=== PATIENT | male | born 1985 | race Caucasian/White ===

== ENCOUNTER 2016-04-01 11:13 | Emergency (ER) | payer OTHER ==
[~2016-04-01] VITALS: Ht 182.9 cm; Wt 95.6 kg
[2016-04-01 11:18] VITALS: TEMP 37; Ht 182.9 cm; Wt 95.6 kg
[2016-04-01] MEDS ORDERED: BUPIVACAINE 0.25% 30 ML VIAL INFIL ONE (11:30)
[2016-04-01] MEDS ORDERED: XYLOCAINE 1%/SOD BICARB 20 ML VIAL INFIL ONE (11:30)
--- NOTE | 2016-04-01 12:04 | DIAGNOSTIC IMAGING REPORT ---
LEFT HAND 3 VIEWS HISTORY: Left hand and finger tip laceration. Saw injury. COMPARISON: None. FINDINGS: There is no fracture or dislocation. Soft tissue lacerations at the distal tips of the third and fourth fingers. No radiopaque foreign bodies. IMPRESSION: No fractures. Soft tissue lacerations at the distal tips of the third and fourth fingers. Electronically signed by: Epi Hope M.D. 04/01/2016 12:02 PM Dictated Date/Time: 04/01/2016 12:00 PM
[2016-04-01] MEDS ORDERED: CLOM50TA6 PO (12:11)
[2016-04-01] MEDS ORDERED: TAMO20TA47 PO (12:11)
[2016-04-01] MEDS ORDERED: OXYC1TAB3 PO ×2 (12:13→12:40)
[2016-04-01] MEDS ORDERED: GELATIN SPONGE 12-7MM ONE (12:28)
[2016-04-01 12:50] VITALS: BP 154/93; PULSE 67; O2SAT 100
--- NOTE | 2016-04-01 15:56 | EMERGENCY ROOM VISIT NOTE ---
History First contact with patient: 11:22 Chief Complaint: HAND PAIN/INJURY Stated Complaint: RIGHT HAND CAUGHT IN SAW - WC History of Present Illness The patient is a 30 year old male who presents to the Emergency Room with complaints of lacerations to his left third and fourth fingers. The patient reports accidentally cutting his fingers on a small at work this morning at approximately 10:30 AM. The patient rates his discomfort a 9 out of 10. He does report moderate bleeding from the fingertips. Tetanus immunization is up- to-date. The patient is [id number]. Review of Systems 10 system review was performed and was negative except for pertinent positives and negatives as indicated in history of present illness Past Medical/Surgical History Medical Problems: (1) Anxiety State Nos (2) Hepatitis C (3) Tobacco Use Disorder Surgical Problems: (1) No history of previous surgery Family History Unremarkable Social History Smoking Status: Never Smoker Alcohol Use: occasionally Marital Status: single Occupation Status: employed Current/Historical Medications Scheduled Clomiphene Citrate (Clomiphene Citrate), 50 TAB PO DIRECTED Tamoxifen (Nolvadex), 20 MG PO DIRECTED Scheduled PRN Oxycodone Ir (Roxicodone Ir), 1-2 TAB PO Q4H PRN for Pain Allergies Coded Allergies: Acetaminophen (Unverified Allergy, Unknown, ., 07/05/15) Penicillins (Verified Allergy, Unknown, 04/01/16) Physical Exam Vital Signs Date Time Temp Pulse Resp B/P Pulse Ox O2 Delivery O2 Flow Rate FiO2 04/01/16 12:50 67 16 154/93 100 04/01/16 11:18 37.0 80 18 160/97 95 Pain Rating (0-10): 5.0 Physical Exam CONSTITUTIONAL: Healthy and well nourished. Alert and oriented X 3 with positive affect. Patient appears in severe discomfort on initial exam. HEENT: Normocephalic, atraumatic. Pupils equal, round and reactive. NECK: Full active range of motion without discomfort. MUSCULOSKELETAL: Examination of the left hand shows lacerations to the fingertips of the third and fourth fingers. Mild bleeding is noted. Capillary refill is brisk. Further details of the laceration is discussed in the following Procedure section. INTEGUMENTARY: No rash or other significant dermatologic conditions noted. NEUROLOGIC: No focal neurologic deficits noted. Left third and fourth fingertips are hyperesthetic. Medical Decision & Procedures ER Provider Diagnostic Interpretation: My interpretation of left hand x-rays does not show any involvement of the left third or fourth finger jd. Radiologist report is as follows: LEFT HAND 3 VIEWS HISTORY: Left hand and finger tip laceration. Saw injury. COMPARISON: None. FINDINGS: There is no fracture or dislocation. Soft tissue lacerations at the distal tips of the third and fourth fingers. No radiopaque foreign bodies. IMPRESSION: No fractures. Soft tissue lacerations at the distal tips of the third and fourth fingers. Procedure Wound evaluation was performed under digital block anesthesia after receiving verbal consent from the patient. Using a 1-1 mixture of Sensorcaine 0.25% and buffered lidocaine 1%, good digital block anesthesia was administered to the third and fourth fingers. The fingertips were then lightly cleansed with iodine , then the wounds were copiously pressure irrigated with normal saline. Evaluation of both wounds shows multiple devitalized fragments on both fingertips. There was no deeper subcutaneous lacerations. An approximated 0.5 cm of sharp debridement was performed. Gelfoam pressure dressings were then applied. ED Course Patient history and physical exam were performed. Nurse's notes were reviewed. X-rays of the left hand does not show any involvement of the bony jd of the third or fourth fingers. Digital block anesthesia was administered for pain control, as well as to perform further wound evaluation. The fingertips did have some devitalized tissue that were sharply debrided, otherwise Gelfoam pressure dressings were applied. The patient was provided a prescription for OxyIR 5 mg. Specific Gelfoam instructions were provided. The patient was encouraged to watch for any signs of infection, otherwise keep the wounds clean and covered with an antibiotic ointment and dressing until they heal. The patient was instructed to return to the emergency department for any further wound concerns, otherwise was instructed to follow-up with his Worker's Compensation physician as needed for further management. The patient voiced understanding of all discharge instructions, and denied any pain at the conclusion of my exam. Medical Decision Impression Primary Impression: Left 3rd fingertip laceration Additional Impressions: Work related injury Left 4th fingertip laceration Departure Information Dispostion Home / Self-Care Condition GOOD Prescriptions Oxycodone Ir (Roxicodone Ir) 5 Mg Tab 1-2 TAB PO Q4H Y for Pain, #36 TAB For Initial Treatment Prov: Abdoul Leung PA 04/01/16 Forms HOME CARE DOCUMENTATION FORM, IMPORTANT VISIT INFORMATION Patient Instructions My [facility] Additional Instructions Keep dressing in place for 48 hrs, then remove. Soak dressings and foam in water until it falls off easily, then clean wounds daily, cover with an antibiotic ointment and keep wounds covered until they heal. Return for any signs of infection (increasing redness, swelling, drainage). Ice and elevate for swelling and pain. Ibuprofen 800 mg and/or Tylenol 1000 mg every 8 hours. You may also alternate these medications for more effective pain relief: Ibuprofen --4 HRS--> Tylenol --4 HRS--> ibuprofen --4 HRS--> Tylenol .... OxyIR if needed for worse pain. Do not drink or drive while taking OxyIR. Problem Qualifiers
--- NOTE | 2016-05-04 14:18 | EDITING REQUIRED CODING QUERY ---
LENGTH OF LACERATION To promote full compliance with coding requirements relating to patient care, physician participation is requested in all cases of clinical nutritionist uncertainty. Please assist us with the question(s) below: Please document the length of the finger laceration. Please type the length in cm within the parenthesis below. finger laceration is ( 2 ) cm. Thank you Annalise Reed
== END 2016-04-01 12:55 | disposition home or self-care (01) ==
LOC: C.EDB 11:14 → C.EDD 12:55
DX: S61.213A Laceration without foreign body of left middle finger without damage to nail, initial encounter (principal); S61.218A Laceration without foreign body of other finger without damage to nail, initial encounter; W27.0XXA Contact with workbench tool, initial encounter; Y99.0 Civilian activity done for income or pay; F41.9 Anxiety disorder, unspecified

== ENCOUNTER 2016-05-13 10:27 | Emergency (ER) | payer OTHER ==
[~2016-05-13] VITALS: Ht 182.9 cm; Wt 95.1 kg
[~2016-05-13 10:27] MED LIST: CLOM50TA6 PO; OXYC1TAB3 PO; TAMO20TA47 PO
[2016-05-13 10:31] VITALS: TEMP 37; Ht 182.9 cm; Wt 95.1 kg
--- NOTE | 2016-05-13 11:21 | DIAGNOSTIC IMAGING REPORT ---
RIGHT HAND 4 VIEWS CLINICAL HISTORY: Foreign body injury. FINDINGS: 4 views of the right hand are obtained. No prior studies are available for comparison at the time of dictation. The skeletal structures are well mineralized. No fracture is seen. The joint spaces of the hand are well-maintained. There is a nail present within the palmar soft tissues at the level of the metacarpal bases. There is no evidence of bony involvement. No additional radiodense foreign body is seen. IMPRESSION: 1. No acute bony abnormality is identified. 2. A nail is present within the palmar soft tissues. Electronically signed by: Branden Martinez M.D. 05/13/2016 11:20 AM Dictated Date/Time: 05/13/2016 11:18 AM
[2016-05-13] MEDS ORDERED: ANAS1TAB19 PO (11:24)
[2016-05-13] MEDS ORDERED: OXAN10TA (11:24)
[2016-05-13] MEDS ORDERED: [UNRECOGNIZED DRUG - OTHER] (11:24)
[2016-05-13] MEDS ORDERED: ONDANSETRON INJ 2 MG/ML 2 ML VIAL IV STA (11:27)
[2016-05-13] MEDS ORDERED: MoRPHine SULFATE 4 MG/ML 1 ML CARP\\VIAL IV STA (11:27)
[2016-05-13] MEDS ORDERED: CEFTRIAXONE SOD INJ 1 GM ADDVIAL IV STA (11:27)
[2016-05-13] MEDS ORDERED: SODIUM CHLORIDE 0.9% 1000ML 1,000 ML IV ONE (11:30)
[2016-05-13] MEDS ORDERED: XYLOCAINE 1%/SOD BICARB 20 ML VIAL INFIL ONE (11:45)
[2016-05-13] MEDS ORDERED: MoRPHine SULFATE 10 MG/ML CARP/VIAL ONE (12:05)
[2016-05-13] MEDS ORDERED: OXYC1TAB3 PO (12:54)
[2016-05-13] MEDS ORDERED: CEPH500C2 PO (12:54)
[2016-05-13 12:55] VITALS: BP 156/65; PULSE 66; O2SAT 99
--- NOTE | 2016-05-13 22:01 | EMERGENCY ROOM VISIT NOTE ---
ED Visit Note First contact with patient: 11:20 Chief Complaint: I have a nail stuck in my right hand. History of Present Illness: Mr. Talbot is a 30-year-old white male who ambulates into the ED complaining of a foreign body patient reports that he was working headache instructions and today using a power. He reports the pain is gone misfire and he had a 12 nail shot into his right hand. Currently patient is complaining of a burning pain in the area of the palmar surface of the right hand. He rates his discomfort 6/10. The pain is nonradiating. Pain worsens with palpation of the hand and the nail. He has not identified any alleviating factors related to prior to arrival at the hospital. He denies any associated symptoms including hand/finger weakness/ numbness/tingling. Review of Systems: As noted above in history of present illness. Past Medical History: Status post unspecified knee and back surgery Current Medications: Nolvadex, clomiphene, arimidex, oxandrolone. Allergies to Medications: Tylenol. Social History: Patient is currently employed; he feels safe in his home environment; he admits to tobacco use and denies alcohol use. Physical Examination: Vital Signs: Date Time Temp Pulse Resp B/P Pulse Ox O2 Delivery O2 Flow Rate FiO2 05/13/16 12:55 66 14 156/65 99 05/13/16 10:31 37.0 75 18 146/90 99 Room Air GENERAL: 30-year-old male in moderate distress due to pain, nontoxic-appearing, afebrile and hemodynamically stable. NEUROLOGICAL: Awake, alert and oriented to person, place and time. Answering questions appropriately and following commands. Normal gait. Good hand eye coordination. No focal motor sensory deficits. SKIN: Warm, dry and pink. RIGHT HAND: No gross bony deformity. Starting in the area in the between the thenar and hypothenar eminence patient has the insertion of a large nail. The nail ambulates to the medial aspect of the hand but does not puncture skin over the fifth metacarpal. There is no active bleeding. Patient has full range of motion in all movements of the MCP, PIP and DIP joints. Throughout the fingers the skin is warm and pink and capillary refill is brisk. Good oppositional finger strength with thumb of all fingers. ED Course: Patient is assessed as noted above. Patient's case was reviewed with Dr. Robles; he recommended antibiotic coverage , local anesthesia and remove the nail by pulling. Right Hand X-Rays: Was read by myself and the radiologist showing a nail present in the palmar aspect of the soft tissues but no bony involvement. An IV lock was initiated and patient received 1 g of ceftriaxone IV for antibiotic coverage and a total of 10 mg of morphine IV for pain and 4 mg of Zofran IV. Wound Repair: Verbal consent was obtained after the risks and benefits were explained. The skin was prepped with betadine and a sterile field set. Wound edges of the wound was anesthetized with 3.2 ml buffered 1% lidocaine. The nail was extracted with manual pulling. The wound was explored for foreign bodies and none found. Copious irrigation was performed using sterile saline. Hemostasis and excellent approximation was achieved. Antibacterial ointment and a sterile dressing applied. Patient's hand was placed in a wrist lacer splint. No complications and the patient tolerated the procedure well. Patient was educated about tonight's findings and instructed on his treatment plan; he verbalized last and agreement with this plan Clinical Impression: Foreign body right hand. Work related injury. Disposition: Patient discharged home in stable condition; prior to departure he was reassessed and subjectively reported he was feeling better and rated his discomfort 4/10. Plan: Comfort measures including use of narcotics were discussed with the patient; he was given appropriate narcotic precautions. Wound care and signs of infection were discussed with the patient; patient was prescribed Keflex 500 mg 4 times a day for 10 days. Patient was encouraged to follow-up with orthopedics for definitive care and treatment. Patient was encouraged return the ED for uncontrolled pain, signs of infection or any new/concerning symptoms.
== END 2016-05-13 13:03 | disposition home or self-care (01) ==
LOC: C.EDB 10:28 → C.EDC 13:03
DX: S61.441A Puncture wound with foreign body of right hand, initial encounter (principal); W29.4XXA Contact with nail gun, initial encounter; Z79.899 Other long term (current) drug therapy; F17.210 Nicotine dependence, cigarettes, uncomplicated; Y93.89 Activity, other specified; Y99.0 Civilian activity done for income or pay

== ENCOUNTER 2016-06-26 16:53 | Emergency (ER) | payer OTHER ==
[~2016-06-26] VITALS: Ht 182.9 cm; Wt 97.6 kg
[~2016-06-26 16:53] MED LIST changes: +ANAS1TAB19 PO; +OXAN10TA; -TAMO20TA47 PO; +TAMO20TA9 PO
[2016-06-26 17:05] VITALS: TEMP 37.2; Ht 182.9 cm; Wt 97.6 kg
[2016-06-26] MEDS ORDERED: OXYCODONE HCL IR 5 MG TAB (IMMEDIATE RELEASE) PO STA (17:32)
--- NOTE | 2016-06-26 18:41 | DIAGNOSTIC IMAGING REPORT ---
LEFT FOOT 3 VIEWS CLINICAL HISTORY: Left foot pain. FINDINGS: 3 views of the left foot are obtained. No prior studies are available for comparison at the time of dictation. The skeletal structures are well mineralized. No fracture is seen. Minimal degenerative spurring is seen at the first metatarsophalangeal joint. The joint spaces of the foot are otherwise well-maintained. The the soft tissues of the foot are normal in appearance. Soft tissue swelling is present around the ankle. IMPRESSION: No acute bony abnormality is seen in the left foot. Electronically signed by: Branden Martinez M.D. 06/26/2016 6:39 PM Dictated Date/Time: 06/26/2016 6:37 PM
--- NOTE | 2016-06-26 18:42 | DIAGNOSTIC IMAGING REPORT ---
LEFT ANKLE 3 VIEWS CLINICAL HISTORY: Left ankle injury. FINDINGS: 3 views of left ankle are correlated with radiograph of the left tibia and fibula dated 11/21/2006. The skeletal structures are well mineralized. No fracture is seen. The ankle mortise is intact. There is a joint effusion and significant soft tissue edema is present around the ankle. IMPRESSION: Soft tissue edema and joint effusion. No left ankle fracture is seen. Electronically signed by: Branden Martinez M.D. 06/26/2016 6:40 PM Dictated Date/Time: 06/26/2016 6:39 PM
--- NOTE | 2016-06-26 18:44 | EMERGENCY ROOM VISIT NOTE ---
ED Visit Note First contact with patient: 17:09 CHIEF COMPLAINT: Left ankle injury last evening HISTORY OF PRESENT ILLNESS: Patient is a 31-year-old white male who sustained an injury to the left ankle and foot with a twisting, inversion motion last day. He was chasing his dog in the yard, admits to having consumed alcohol. Initially after he injured the ankle he applied ice and was able to bear weight , but when he woke up this morning the pain and swelling were worse and he had to use crutches. He did not take any medication for his pain which he rates a 7 /10. He denies a prior history of injuries to this ankle. He states the pain radiates into his foot. Denies knee pain. REVIEW OF SYSTEMS: Review of systems as per HPI. All other systems reviewed were negative. At least 6 systems reviewed. PMH: Electronic medical records are reviewed and summarized as above/below. See Problem List. SOCIAL HISTORY: Patient lives at home. Smoker. PHYSICAL EXAM: Vital Signs: Reviewed Nurse's notes. MENTAL STATUS: Alert, oriented, and cooperative. The left ankle is swollen and tender over the lateral aspect but the skin is intact and there is no ligamentous instability. Moderate joint effusion is palpable. There is pain over the proximal fifth metatarsal, no pain over the proximal fibular head. Lisfranc joint is negative. There is no deformity. The foot and toes are warm and well- perfused. Sensation to pain and light touch is intact. EMERGENCY DEPARTMENT COURSE: Patient was medicated with oxycodone 10 mg orally. X-rays of the right ankle and foot were obtained. X-ray reveals no fracture, only the soft tissue swelling. A compression sleeve and gel splint were applied to the ankle under my direction and the position was satisfactory. Patient has crutches. Differential diagnosis include foot verses ankle sprain/fracture, contusion, dislocation. Problem List Medical Problems: (1) Anxiety State Nos Status: Chronic (2) Foreign body of right hand Status: Resolved (3) Fracture of distal end of tibia Status: Resolved (4) Hepatitis C Status: Chronic (5) Medication requested Status: Resolved (6) Tobacco Use Disorder Status: Chronic (7) Work related injury Status: Resolved (8) Work related injury Status: Resolved Surgical Problems: (1) No history of previous surgery Status: Resolved Current/Historical Medications No Active Prescriptions or Reported Meds Allergies Coded Allergies: Acetaminophen (Unverified Allergy, Unknown, ., 06/26/16) Penicillins (Verified Allergy, Unknown, 06/26/16) Vital Signs Date Time Temp Pulse Resp B/P Pulse Ox O2 Delivery O2 Flow Rate FiO2 06/26/16 19:07 79 18 134/53 96 06/26/16 17:05 37.2 106 18 173/74 97 Room Air Medications Administered Medications (Trade) Dose Ordered Sig/Jammie Route Start Time Stop Time Status Last Admin Dose Admin Oxycodone HCl (Roxicodone Immediate Rel Tab) 10 mg NOW STAT PO 06/26/16 17:32 06/26/16 17:33 DC 06/26/16 17:48 10 MG Departure Information Impression Primary Impression: Left ankle sprain Additional Impression: Sprain of left foot Prescriptions No Active Prescriptions or Reported Meds Referrals Beny Gaston III, M.D. (PCP) Patient Instructions My [facility] Additional Instructions DO NOT drive, drink alcohol, operate machinery, or perform dangerous activities today. You were given medications in the ER that can affect your ability to safely function or operate a vehicle. Ibuprofen(Motrin, Advil) may be used for fever or pain. Use 600mg every six hours as needed. Take with food. Avoid using more than 2400mg in a 24 hour period. Do not use 2400mg per day for more than three consecutive days without physician direction. Prolonged inappropriate use can lead to stomach upset or ulcers. This medication can be taken if you need to drive, work, or perform activities which may be dangerous when taking narcotic pain medication. Ice compresses for 20 minutes at a time four times daily for 2-3 days. Use the gel splint and crutches as instructed. Rest and elevate your injury. Continue current medications. Return to the ER immediately for any numbness, tingling, severe pain, extreme swelling in the extremity or as needed. Followup with your family doctor or orthopedic surgery if no improvement in 5-7 days. Problem Qualifiers
[2016-06-26 19:07] VITALS: BP 134/53; PULSE 79; O2SAT 96
== END 2016-06-26 19:09 | disposition home or self-care (01) ==
LOC: C.EDB 16:54 → C.EDD 19:09
DX: S93.602A Unspecified sprain of left foot, initial encounter (principal); S93.402A Sprain of unspecified ligament of left ankle, initial encounter; X50.1XXA Overexertion from prolonged static or awkward postures, initial encounter; Y92.017 Garden or yard in single-family (private) house as the place of occurrence of the external cause; F41.9 Anxiety disorder, unspecified; B19.20 Unspecified viral hepatitis C without hepatic coma; F17.210 Nicotine dependence, cigarettes, uncomplicated

== ENCOUNTER → 2016-10-11 | Outpatient (CLI) | payer OTHER ==
[2016-10-11 10:13] LABS: BASO % 0.6 %; BASO ABS # 0.02 K/uL (0-0.2); COMPLETE YES; EOS % 8.2 %; HEMATOCRIT 45.9 % (42-52); LYMPH % 40.3 %; LYMPH ABS # 1.33 K/uL (1.2-3.4); MEAN CELL VOLUME 89.6 fL (80-100); MEAN CORPUSCULAR HEMOGLOBIN 29.5 pg (25-34); MEAN CORPUSCULAR HGB CONC 32.9 g/dl (32-36); MEAN PLATELET VOLUME 10.7 fL (7.4-10.4); MONO % 13.9 %; PLATELET COUNT 199 K/uL (130-400); RED BLOOD COUNT 5.12 M/uL (4.7-6.1)
[2016-10-11 10:42] LABS: ALT/SGPT 29 U/L (12-78); BLOOD UREA NITROGEN 18 mg/dl (7-18); BUN/CREATININE RATIO 16.5 (10-20); CALCIUM 8.5 mg/dl (8.5-10.1); CARBON DIOXIDE 28 mmol/L (21-32); CHLORIDE 107 mmol/L (98-107); CHOLESTEROL 170 mg/dl (0-200); GLUCOSE 80 mg/dl (70-99); SODIUM 141 mmol/L (136-145)
[2016-10-11 10:51] LABS: ALKALINE PHOSPHATASE 53 U/L (45-117); AST/SGOT 21 U/L (15-37); CHOLESTEROL/HDL RATIO 2.5; HDL CHOLESTEROL 69 mg/dl; LDL CHOLESTEROL CALCULATED 66 mg/dl; TRIGLYCERIDES 175 mg/dl (0-150); VERY LOW DENSITY LIPOPROT CALC 35 mg/dl
== END | disposition home or self-care (01) ==
LOC: C.LAB1850 08:57
PROVIDERS: ATTEND Internal Medicine Endocrinology, Diabetes & Metabolism
DX: R53.83 Other fatigue (principal)

== ENCOUNTER 2017-01-28 03:32 | Emergency (ER) | payer OTHER ==
[~2017-01-28] VITALS: Ht 180.3 cm; Wt 95.9 kg
[2017-01-28 03:37] VITALS: Ht 180.3 cm; Wt 95.9 kg
--- NOTE | 2017-01-28 03:44 | EMERGENCY ROOM VISIT NOTE ---
History Report prepared by Marb[place]ib[place]: Coleen Paula Under the Supervision of: Dr. Hoa Richey D.O. First contact with patient: 03:35 Chief Complaint: FALL Stated Complaint: FALL History of Present Illness The patient is a 31 year old male who presents to the Emergency Room with complaints of a fall that occurred around 1500 today. He is accompanied by friends. His friends reports he was working on a house when he fell approximately 20 feet off scaffolding. His friends state he was unconscious briefly after the fall and they believe he hit his head. They had to help him ambulate throughout the evening, and note initially the patient wanted to " tough it out", but he decided to come to the ED when his low back and left knee pain worsened. The friend explains that the patient struck the scaffolding on the way down multiple times. The patient admits to drinking "3 strongly alcoholic beers" this evening. Source of History: patient, friend Onset: 1500 today Position: other (global) Timing: resolved Associated Symptoms: + LOC, + back pain Review of Systems See HPI for pertinent positives & negatives. A total of 10 systems reviewed and were otherwise negative. Past Medical & Surgical Medical Problems: (1) Anxiety State Nos (2) Foreign body of right hand (3) Fracture of distal end of tibia (4) Hepatitis C (5) Medication requested (6) Tobacco Use Disorder (7) Work related injury (8) Work related injury Surgical Problems: (1) No history of previous surgery Social History Smoking Status: Never Smoker Alcohol Use: occasionally Marital Status: in relationship Housing Status: lives with friends Occupation Status: employed Current/Historical Medications No Active Prescriptions or Reported Meds Allergies Coded Allergies: Acetaminophen (Unverified Allergy, Unknown, ., 01/28/17) Penicillins (Verified Allergy, Unknown, 01/28/17) Physical Exam Vital Signs Date Time Temp Pulse Resp B/P (MAP) Pulse Ox O2 Delivery O2 Flow Rate FiO2 01/28/17 05:02 94 23 99 Room Air 01/28/17 04:32 83 15 94 Room Air 01/28/17 04:31 119/76 01/28/17 04:13 131/84 01/28/17 03:39 108 01/28/17 03:37 108 16 164/98 100 Room Air 01/28/17 03:36 164/98 Physical Exam General: The patient is confused, has some repetitive questioning. HEENT: Head - normocephalic. Contusion over left zygoma. Pupils are equal, round, and reactive to light. Extraocular eye muscles are intact and sclera are anicteric. Ears - bilaterally patent canals with no evidence of hemotympanum. Nose - moist nasal mucosa without evidence of trauma or discharge. Mouth - moist buccal mucosa with no trauma to the teeth or signs of malocclusion. Neck: The neck is supple and there is no pain to palpation over the posterior cervical spine and no obvious step-offs or deformities. There is no JVD or tracheal deviation. Chest: There are no signs of deformities, contusions or abrasions to the chest wall. There is no obvious crepitus or paradoxical chest rise. Heart: Regular, rate, and rhythm. There is a normal S1 and S2 with no murmurs, clicks, or gallops appreciated. Lungs: Clear to auscultation bilaterally with no wheezes, rales, or rhonchi. Abdomen: Soft, hematoma over right lower quadrant and right flank, nondistended , with good bowel sounds. There is no sign of trauma such as contusions, abrasions or penetrations. There are no palpable pulsatile masses or hepatosplenomegaly. There is no guarding, rigidity, or rebound noted. Pelvis: Stable to rock and compression. Extremities: Moderate pain over left knee with palpation. No obvious trauma, deformities, contusions, or edema. There are easily palpable peripheral pulses. Neuro: The patient is awake and alert and easily able to follow commands. Muscle strength is 5 out of 5 in all 4 extremities. Otherwise, neuro exam is unremarkable. Back: The entire thoracic, lumbar, and sacral spine were palpated. There are no obvious step-offs or deformities noted. Extreme tenderness with palpation over lumbosacral spine. There are no obvious signs of trauma such as contusions abrasions penetrations noted to the back. Medical Decision & Procedures ER Provider Diagnostic Interpretation: Radiology results as stated below per my review and the radiologist's interpretation: CT HEAD: No acute intracranial abnormality. No acute osseous abnormality. CT C SPINE: No evidence of fracture or trauma malalignment. CT CHEST With Contrast: No acute intrathoracic abnormality. No acute osseous abnormality. Bilateral gynecomastia. CT ABDOMEN & PELVIS: No solid organ or great vessel injury. No free fluid. No free air. No acute osseous abnormality. Edema noted in the subcutaneous soft tissues overlying the lateral right pelvis , likely seatbelt sign. CT L SPINE: No acute fracture or traumatic malalignment. Radiologist: Vimal Mckay MD Laboratory Results 01/28/17 03:40 01/28/17 03:40 Test 01/28/17 03:40 01/28/17 03:45 01/28/17 03:57 Red Blood Count 4.61 M/uL (4.7-6.1) Mean Corpuscular Volume 94.8 fL (80-100) Mean Corpuscular Hemoglobin 32.3 pg (25-34) Mean Corpuscular Hemoglobin Concent 34.1 g/dl (32-36) RDW Standard Deviation 46.5 fL (36.4-46.3) RDW Coefficient of Variation 13.5 % (11.5-14.5) Mean Platelet Volume 10.6 fL (7.4-10.4) Est Creatinine Clear Calc Drug Dose 122.9 ml/min Estimated GFR () 112.7 Estimated GFR (Non- 97.3 BUN/Creatinine Ratio 18.0 (10-20) Calcium Level 8.1 mg/dl (8.5-10.1) Total Bilirubin 0.3 mg/dl (0.2-1) Direct Bilirubin 0.1 mg/dl (0-0.2) Aspartate Amino Transf (AST/SGOT) 37 U/L (15-37) Alanine Aminotransferase (ALT/SGPT) 37 U/L (12-78) Alkaline Phosphatase 60 U/L (45-117) Total Protein 7.9 gm/dl (6.4-8.2) Albumin 4.0 gm/dl (3.4-5.0) Ethyl Alcohol mg/dL 260.0 mg/dl (0-3) Urine Opiates Screen NEG (NEG) Urine Methadone, Qualitative POS (NEG) Urine Barbiturates NEG (NEG) Urine Phencyclidine (PCP) Level NEG (NEG) Ur Amphetamine/Methamphetamine NEG (NEG) MDMA (Ecstasy) Screen NEG (NEG) Urine Benzodiazepines Screen NEG (NEG) Urine Cocaine Metabolite NEG (NEG) Urine Marijuana (THC) NEG (NEG) Bedside Hemoglobin 14.3 g/dl (14.0-18.0) Bedside Hematocrit 42 % (42-52) Bedside Sodium 145 mEq/L (135-144) Bedside Potassium 3.9 mEq/L (3.3-5.0) Bedside Chloride 107 mEq/L (101-112) Bedside Total CO2 24 mEq/l (24-31) Anion Gap 19.0 mmol/L (16-25) Bedside Blood Urea Nitrogen 17 mg/dl (7-18) Bedside Creatinine 1.2 mg/dl (0.6-1.3) Bedside Glucose (other) 94 mg/dl (70-99) Bedside Ionized Calcium (Iesha) 1.12 mmol/l (1.12-1.32) Laboratory results per my review. ED Course 0335: Past medical records reviewed. The patient was evaluated in room B1. A complete history and physical exam was performed. An IV lock was initiated and labs were drawn as above. I offered the patient medication for pain and he stated "I don't want any narcotics or anything, I don't like narcotics". I offered give the patient Toradol once he had his CT scans performed and I ensured that he had no internal bleeding. The patient went for CT scan of the brain, cervical spine, chest, abdomen/pelvis, and lumbar spine. 0513: I reevaluated the patient. Upon entering the room, the patient was up out of the bed getting dressed. He became belligerent with me. He has been yelling and belligerent with nursing staff. He states he was upset because the nurses asked him to stop cursing. When I entered the room, he was already dressed and stated he was leaving. His friends tried to calm him down. I tried to review the results of his CT scans and blood work, but he would not listen. He accused me of not wanting to give him anything for pain. The patient was obviously limping around in the room, so I offered to X-ray his left knee. He once again became belligerent with me and is leaving against medical advice. He refused to stay for discharge instructions. I did completely review the results of the CT scan , laboratory studies and urine testing with the patient's girlfriend who was at the bedside. I gave the patient and his girlfriend opportunities to ask questions. Medical Decision The patient is a 31 year old male who presents to the ED with a fall. Differential diagnosis includes closed head injury, concussion, intracranial trauma, chest trauma, intraabdominal trauma and lumbar spine fracture. Lab results show WBC is normal. Stable H&H. Normal renal function and glucose. Normal LFT's. Alcohol is 260. Urine toxicology screen is positive for Methadone. This is a 31-year-old male patient who suffered a fall from scaffolding approximately 20 feet about 12 hours ago. The patient did have loss of consciousness at that time. He went home and did drink some beer but the pain worsened so he came to the emergency department. The patient did have a slightly altered mental status. It was difficult to tell if this was secondary to the alcohol or if he was truly head injured. CT scan of the brain, cervical spine, chest, abdomen/pelvis, and lumbar spine were all negative for significant traumatic injuries. I had intended to x-ray the patient's left knee after results of the CAT scans were reviewed that the patient was insistent upon leaving immediately. I suggested that the patient return to this emergency department if he developed any worsening symptoms. Medication Reconcilliation Current Medication List: was personally reviewed by me Blood Pressure Screening Patient's blood pressure: Elevated blood pressure Blood pressure disposition: Elevated BP felt to be situational Impression Primary Impression: Fall from height of greater than 3 feet Additional Impressions: Concussion Alcohol intoxication Abdominal contusion Contusion of left knee Scribe Attestation The scribe's documentation has been prepared under my direction and personally reviewed by me in its entirety. I confirm that the note above accurately reflects all work, treatment, procedures, and medical decision making performed by me. Departure Information Dispostion Against Medical Advice Prescriptions No Active Prescriptions or Reported Meds Referrals No Doctor, Assigned (PCP) Patient Instructions My [facility] Problem Qualifiers Additional Impressions: Concussion Encounter type: initial encounter Loss of consciousness presence/duration: with LOC of 30 min or less Qualified Codes: S06.0X1A - Concussion with loss of consciousness of 30 minutes or less, initial encounter Alcohol intoxication Complication of substance-induced condition: uncomplicated Qualified Codes: F10.920 - Alcohol use, unspecified with intoxication, uncomplicated Abdominal contusion Encounter type: initial encounter Qualified Codes: S30.1XXA - Contusion of abdominal wall, initial encounter Contusion of left knee Encounter type: initial encounter Qualified Codes: S80.02XA - Contusion of left knee, initial encounter
[2017-01-28] MEDS ORDERED: OPTIRAY 320 IV PRN (04:00)
[2017-01-28 04:08] LABS: ISTAT CREATININE 1.2 mg/dl (0.6-1.3); ISTAT HEMOGLOBIN 14.3 g/dl (14.0-18.0); ISTAT IONIZED CALCIUM 1.12 mmol/l (1.12-1.32)
[2017-01-28 04:09] LABS: HEMATOCRIT 43.7 % (42-52); MEAN CELL VOLUME 94.8 fL (80-100); MEAN CORPUSCULAR HEMOGLOBIN 32.3 pg (25-34); MEAN CORPUSCULAR HGB CONC 34.1 g/dl (32-36); MEAN PLATELET VOLUME 10.6 fL (7.4-10.4); PLATELET COUNT 186 K/uL (130-400); RED BLOOD COUNT 4.61 M/uL (4.7-6.1); WHITE BLOOD COUNT 7.32 K/uL (4.8-10.8)
[2017-01-28 04:26] LABS: CALCIUM 8.1 mg/dl (8.5-10.1); CREATININE 1.01 mg/dl (0.60-1.40); POTASSIUM 3.9 mmol/L (3.5-5.1)
[2017-01-28 04:31] VITALS: BP 119/76
[2017-01-28 04:59] LABS: BENZODIAZEPINE, URINE NEG (NEG); COCAINE,URINE NEG (NEG); PHENCYCLIDINE, URINE NEG (NEG)
[2017-01-28 05:02] VITALS: PULSE 94; O2SAT 99
--- NOTE | 2017-01-28 06:32 | DIAGNOSTIC IMAGING REPORT ---
HEAD CT NONCONTRAST CT DOSE: HISTORY: eval for trauma - fell>20 feet TECHNIQUE: Multiaxial CT images of the head were performed without the use of intravenous contrast. Automated exposure control was utilized for this study. A dose lowering technique was utilized adhering to the principles of ALARA. Comparison: None. Findings: The paranasal sinuses and mastoid air cells are clear. The calvarium and skull base are intact. The ventricles and sulci are within normal limits. There is no mass, hematoma, midline shift, or acute infarct. Impression: No acute intracranial abnormality. Electronically signed by: Epi Hope M.D. 01/28/2017 6:30 AM Dictated Date/Time: 01/28/2017 6:28 AM
--- NOTE | 2017-01-28 06:36 | DIAGNOSTIC IMAGING REPORT ---
LUMBAR SPINE CT CT DOSE: HISTORY: Low back pain. Fall. eval for trauma TECHNIQUE: Multiaxial CT images of the lumbar spine were performed and reformatted in the sagittal and coronal plane without the use of contrast. A dose lowering technique was utilized adhering to the principles of ALARA. COMPARISON: None. FINDINGS: No fractures. No subluxation. Paraspinal soft tissues are unremarkable. Disc spaces are preserved. IMPRESSION: No fractures within the lumbar spine. Electronically signed by: Epi Hope M.D. 01/28/2017 6:35 AM Dictated Date/Time: 01/28/2017 6:33 AM
--- NOTE | 2017-01-28 06:39 | DIAGNOSTIC IMAGING REPORT ---
CERVICAL SPINE CT CT DOSE: HISTORY: eval for trauma TECHNIQUE: Multiaxial CT images of the cervical spine were performed and reformatted in the sagittal and coronal plane without the use of contrast. A dose lowering technique was utilized adhering to the principles of ALARA. COMPARISON: None. FINDINGS: No fractures. No subluxation. Prevertebral soft tissues and the C1-C2 interval are intact. No pneumothorax. IMPRESSION: No fractures within the cervical spine. Electronically signed by: Epi Hope M.D. 01/28/2017 6:37 AM Dictated Date/Time: 01/28/2017 6:35 AM
--- NOTE | 2017-01-28 06:54 | DIAGNOSTIC IMAGING REPORT ---
CHEST, ABDOMEN, AND PELVIS CT WITH CONTRAST CT DOSE: 2583.72 mGy.cm HISTORY: eval for trauma TECHNIQUE: Multiaxial CT images of the chest , abdomen, pelvis were performed following the intravenous administration of contrast. A dose lowering technique was utilized adhering to the principles of ALARA. COMPARISON: None. FINDINGS: Incidental note is made of an accessory right upper lobe bronchus. A 3 mm nodule within the left lower lobe on image 42. The lungs are otherwise clear. The mediastinal vascular structures are within normal limits. No mediastinal or hilar lymphadenopathy. No pleural effusion or pneumothorax. Limited views of the upper abdomen demonstrate a normal liver and spleen. The liver, spleen, gallbladder, adrenal glands, pancreas, and kidneys are unremarkable. No retroperitoneal lymphadenopathy. Normal bladder. No pelvic free fluid. No bowel wall thickening or obstruction. A few colonic diverticula. Normal appendix. Subcutaneous fat stranding within the right lateral pelvis. Tiny fat-containing umbilical hernia. IMPRESSION: 1. No acute process within the chest. 2. Subcutaneous fat stranding within the right lateral pelvis. This is consistent with a small soft tissue contusion. 3. Otherwise, no acute process within the abdomen or pelvis. 4. A 3 mm nodule within the left lower lobe. Please refer to the chart below for recommended follow-up. Please refer to below summary of Fleischner criteria recommendations for follow-up of incidental CT nodules (Gissell Sierra, Guidelines for management of small pulmonary nodules detected on CT scans: A statement from the Fleischner Society, Radiology 237: [phone].) SOLID NODULES Solitary nodule size: <6 mm * Low risk patients: no follow-up needed * high risk patients: optional CT at 12 months Solitary nodule size: 6-8 mm * Low risk patients: follow-up at 6-12 months, then consider further follow-up at 18-24 months * high risk patients: initial follow-up CT at 6-12 months and then at 18-24 months if no change Solitary nodule size: >8 mm * either low or high risk patients - consider follow-up CT at 3 months, and/or CT-PET, and/or biopsy Multiple nodules size: <6 mm * Low risk patients: no routine follow-up * high risk patients: optional CT at 12 months Multiple nodules size: 6-8 mm * Low risk patients: follow-up at 3-6 months, then consider further follow-up at 18-24 months * high risk patients: follow-up at 3-6 months, then at 18-24 months if no change Multiple nodules size: >8 mm * Low risk patients: follow-up at 3-6 months, then consider further follow-up at 18-24 months * high risk patients: follow-up at 3-6 months, then at 18-24 months if no change Note: newly detected indeterminate nodule in persons 35 years of age or older. * Low risk patients: minimal or absent history of smoking and/or other known risk factors * high risk patients: history of smoking or of other known risk factors (e.g. first degree relative with lung cancer, or exposure to asbestos, radon, uranium) * if a nodule up to 8 mm is partly solid or is ground glass further follow-up is required after 24 months to exclude possible slow growing adenocarcinoma ([place]) SUBSOLID NODULES Solitary pure ground-glass nodule * nodule size <6 mm - no CT follow-up required * nodule size >=6 mm - follow-up CT at 6-12 months, then every 2 years until 5 years Solitary part-solid nodule * nodule size <6 mm - no CT follow-up required * nodule size >=6 mm - follow-up CT at 3-6 months. If unchanged, and solid component remains <6 mm, then annual follow-up for 5 years Multiple subsolid nodules * nodule size <6 mm - follow-up CT at 3-6 months, consider further follow-up at 2 and 4 years if stable * nodule size >=6 mm - follow-up CT at 3-6 months, subsequent management based on the most suspicious nodule(s) Electronically signed by: Epi Hope M.D. 01/28/2017 6:52 AM Dictated Date/Time: 01/28/2017 6:43 AM
== END 2017-01-28 05:23 | disposition left against medical advice (07) ==
LOC: C.EDB 03:33
DX: S06.0X9A Concussion with loss of consciousness of unspecified duration, initial encounter (principal); S80.02XA Contusion of left knee, initial encounter; S30.1XXA Contusion of abdominal wall, initial encounter; W17.89XA Other fall from one level to another, initial encounter; F10.129 Alcohol abuse with intoxication, unspecified; Y90.8 Blood alcohol level of 240 mg/100 ml or more; Z91.19 Patient's noncompliance with other medical treatment and regimen; B19.20 Unspecified viral hepatitis C without hepatic coma; F41.9 Anxiety disorder, unspecified; F17.200 Nicotine dependence, unspecified, uncomplicated; Z87.828 Personal history of other (healed) physical injury and trauma; Z88.0 Allergy status to penicillin; Z88.6 Allergy status to analgesic agent

== ENCOUNTER 2017-02-15 04:30 | Emergency (ER) | payer OTHER ==
[~2017-02-15] VITALS: Ht 182.9 cm; Wt 96.3 kg
[2017-02-15 04:33] VITALS: BP 140/94; PULSE 88; TEMP 36.8; O2SAT 96; Ht 182.9 cm; Wt 96.3 kg
[2017-02-15] MEDS ORDERED: PROPARACAINE HCL 0.5% OP SOLN 15 ML BTL OP STA (04:40)
[2017-02-15] MEDS ORDERED: IBUP-1050 PO (04:58)
--- NOTE | 2017-02-15 04:58 | EMERGENCY ROOM VISIT NOTE ---
ED Visit Note First contact with patient: 04:40 CHIEF COMPLAINT: Eye pain HISTORY OF PRESENT ILLNESS: This 31-year-old male patient presents to the emergency department complaining of pain in the left eye that began upon waking up this morning. The patient was getting ready to go hunting, and woke with right eye pain. There has been a constant moderate pain and irritation, redness and tearing in the eye. There is a mild blurring of vision at times and light bothers the eye. The vision has not been decreased over all. The patient does not wear contacts. The patient rates the pain as sharp and 8/10. The patient has no had previous injuries to this eye. Tetanus shot is reportedly up to date. REVIEW OF SYSTEMS: A 6 system review of systems was completed with positives and pertinent negatives listed in the HPI. ALLERGIES: Penicillin MEDICATIONS: No chronic medications PMH: Otherwise healthy SOCIAL HISTORY: Lives locally PHYSICAL EXAM: Vital Signs: Reviewed Nurse's notes, vital signs stable. GEN: White male, in no acute distress, but who is uncomfortable from the eye problem. Well-developed well-nourished. EYES: The pupils are equal round and reactive to light and accommodation. EOMs are full and without tenderness. There is discharge of clear tears from the right eye which is injected. There is no foreign body visible under the eyelid even after lid eversion. Funduscopic exam reveals no hemorrhages, papilledema, or other abnormalities. No foreign body was seen embedded in the cornea under slit lamp exam. The cornea was clear and no hyphema was seen. Fluorescein uptake was observed with ultraviolet light significant for a corneal abrasion at 6:00. EMERGENCY DEPARTMENT COURSE: I examined the patient. Alcaine 2 drops were placed in the patient's right eye. A slit lamp exam was performed as above. Ciloxan two drops was placed in the patient's right eye. The patient was discharged home in good condition. Problem List Medical Problems: (1) Anxiety State Nos Status: Chronic (2) Foreign body of right hand Status: Resolved (3) Fracture of distal end of tibia Status: Resolved (4) Hepatitis C Status: Chronic (5) Medication requested Status: Resolved (6) Tobacco Use Disorder Status: Chronic (7) Work related injury Status: Resolved (8) Work related injury Status: Resolved Surgical Problems: (1) No history of previous surgery Status: Resolved Current/Historical Medications No Active Prescriptions or Reported Meds Allergies Coded Allergies: Acetaminophen (Unverified Allergy, Unknown, ., 01/28/17) Penicillins (Verified Allergy, Unknown, 01/28/17) Vital Signs Date Time Temp Pulse Resp B/P (MAP) Pulse Ox O2 Delivery O2 Flow Rate FiO2 02/15/17 04:33 36.8 88 20 140/94 96 Room Air Medications Administered Medications (Trade) Dose Ordered Sig/Jammie Route Start Time Stop Time Status Last Admin Dose Admin Proparacaine HCl (Alcaine 0.5% Oph Soln) 2 drops NOW STAT OP 02/15/17 04:40 02/15/17 04:41 DC 02/15/17 04:40 2 DROPS Departure Information Impression Primary Impression: Corneal abrasion, right Dispostion Home / Self-Care Condition GOOD Prescriptions No Active Prescriptions or Reported Meds Forms HOME CARE DOCUMENTATION FORM, IMPORTANT VISIT INFORMATION Patient Instructions My [facility] Additional Instructions You were seen and evaluated today on an emergency basis only. This is not a substitute for, or an effort to provide, complete comprehensive medical care. It is not possible to recognize and treat all injuries or illnesses in a single emergency department visit. For this reason it is recommended that you followup with your primary care physician or your eye doctor for recheck in the next 2 days. Use Ciloxan Eye Drops: Instill 1-2 drops into the conjunctival sac every 2 hours while awake for 2 days and 1-2 drops every 4 hours while awake for the next 5 days [place] (hydrocodone/acetaminophen) 5/325 mg (homepack) ONE pill every 6 hours as needed for worsening breakthrough pain. Do not drink or drive on [place]. This medication will likely make you tired. Do not take [place] and Tylenol at the same time as both contain acetaminophen. [place] may cause constipation. You may wish to take an [id number] stool softener like Colace if this occurs. You are welcome to return to the emergency department anytime with new, worsening, or concerning symptoms.
[2017-02-15] MEDS ORDERED: NORCO 5/325MG HOME PACK PO ONE (05:00)
[2017-02-15] MEDS ORDERED: CIPROFLOXACIN HCL 0.3% OP SOLN 2.5 ML BTL OP ONE (05:00)
[2017-02-15] MEDS ORDERED: OXYC1TAB3 PO (07:20)
== END 2017-02-15 05:24 | disposition home or self-care (01) ==
LOC: C.EDB 04:31
DX: S05.01XA Injury of conjunctiva and corneal abrasion without foreign body, right eye, initial encounter (principal); X58.XXXA Exposure to other specified factors, initial encounter; F41.9 Anxiety disorder, unspecified; F17.200 Nicotine dependence, unspecified, uncomplicated

== ENCOUNTER 2017-02-15 06:20 | Emergency (ER) | payer OTHER ==
[~2017-02-15] VITALS: Ht 182.9 cm; Wt 95.0 kg
[~2017-02-15 06:20] MED LIST changes: -ANAS1TAB19 PO; -CLOM50TA6 PO; +IBUP-1050 PO; -OXAN10TA; -OXYC1TAB3 PO; -TAMO20TA9 PO
[2017-02-15 06:29] VITALS: TEMP 36.9; Ht 182.9 cm; Wt 95.0 kg
[2017-02-15] MEDS ORDERED: PROPARACAINE HCL 0.5% OP SOLN 15 ML BTL ONE (06:31)
[2017-02-15] MEDS ORDERED: IBUPROFEN 600 MG TAB PO STA (07:15)
[2017-02-15] MEDS ORDERED: OXYCODONE HCL IR 5 MG TAB (IMMEDIATE RELEASE) PO STA (07:15)
[2017-02-15] MEDS ORDERED: OXYCODONE IR HOME PACK PO ONE (07:15)
[2017-02-15] MEDS ORDERED: OXYC1TAB3 PO (07:20)
[2017-02-15 08:04] VITALS: BP 133/78; PULSE 67; O2SAT 98
--- NOTE | 2017-02-15 09:39 | EMERGENCY ROOM VISIT NOTE ---
ED Visit Note First contact with patient: 06:22 CHIEF COMPLAINT: Pain of the Rt eye HISTORY OF PRESENT ILLNESS: This 31 year old patient presents to the emergency department complaining of pain in the Rt eye. The patient was seen earlier in the night and had a full examination by Adolfo Kiser. he is here for better pain control as he is taking his Vicodin and it has not worked. There has been a constant moderate pain and irritation, redness and tearing in the eye. The vision has not been decreased over all. The patient does not wear contacts. The patient rates the pain as 10/10. The patient has not had previous injuries to this eye. Tetanus shot is up to date. REVIEW OF SYSTEMS: A 6 system review of systems was completed with positives and pertinent negatives listed in the HPI. ALLERGIES:Acetaminophen, Pen MEDICATIONS:See nursing notes PMH: None SOCIAL HISTORY: Emplyed lives at home PHYSICAL EXAM: Vital Signs: Reviewed Nurse's notes, vital signs stable. GENERAL: This is a 31 y/o male, in no acute distress, but who is uncomfortable from the eye problem. Well-developed well-nourished. EYES: The pupils are equal round and reactive to light and accommodation. EOMs are full and without tenderness. There is clear discharge from the Rt eye which is injected. EMERGENCY DEPARTMENT COURSE: I examined the patient. Alcaine 2 drops were placed in the patient's Rt eye. We have a lengthy discussion over the patient' s pain control. I recommended switching him to oxycodone and to take ibuprofen as well. The patient is requesting the Alcaine eyedrops which I recommended he not use. I also recommended that the patient follow-up with ophthalmology. DIAGNOSIS: corneal abrasion of the Rt eye DISCHARGE INSTRUCTIONS AND TREATMENT: Use Ciloxin two drops in XXX eye every two hours while awake for two days; then two drops every four hours while awake for three days. Use Ibuprofen 600 mg or Tylenol 1000 mg every 6 hrs as needed for moderate pain. Use Vicodin 1 tablet every four to six hours when pain breaks through the Ibuprofen or Tylenol. Return to the ED or see your eye doctor in 24-48 hours for a recheck. Return to the ED for increasing pain or changes in vision. Problem List Medical Problems: (1) Anxiety State Nos Status: Chronic (2) Foreign body of right hand Status: Resolved (3) Fracture of distal end of tibia Status: Resolved (4) Hepatitis C Status: Chronic (5) Medication requested Status: Resolved (6) Tobacco Use Disorder Status: Chronic (7) Work related injury Status: Resolved (8) Work related injury Status: Resolved Surgical Problems: (1) No history of previous surgery Status: Resolved Current/Historical Medications Scheduled PRN Ibuprofen (Advil), 200-600 MG PO Q4H PRN for Pain Oxycodone Immediate Rel Tab (Roxicodone Ir), 1-2 TAB PO Q4H PRN for Severe Pain Allergies Coded Allergies: Penicillins (Verified Allergy, Unknown, UNKNOWN, 02/15/17) Acetaminophen (Verified Adverse Reaction, Intermediate, "IN LARGE DOSES"- GI UPSET, 02/15/17) Vital Signs Date Time Temp Pulse Resp B/P (MAP) Pulse Ox O2 Delivery O2 Flow Rate FiO2 02/15/17 08:04 67 18 133/78 98 02/15/17 06:29 36.9 86 20 143/98 98 Room Air Medications Administered Medications (Trade) Dose Ordered Sig/Jammie Route Start Time Stop Time Status Last Admin Dose Admin Proparacaine HCl (Alcaine 0.5% Oph Soln) 225 drops STK-MED ONCE .ROUTE 02/15/17 06:31 02/15/17 06:32 DC 02/15/17 06:38 225 DROPS Ibuprofen (Motrin Tab) 600 mg NOW STAT PO 02/15/17 07:15 02/15/17 07:16 DC 02/15/17 07:46 600 MG Oxycodone HCl (Roxicodone Immediate Rel Tab) 10 mg NOW STAT PO 02/15/17 07:15 02/15/17 07:16 DC 02/15/17 07:46 10 MG Departure Information Impression Primary Impression: Corneal abrasion, right Dispostion Home / Self-Care Condition GOOD Prescriptions Oxycodone Immediate Rel Tab (ROXICODONE IR) 5 Mg Tab 1-2 TAB PO Q4H Y for Severe Pain, #14 TAB Prov: Jordy Colunga MD 02/15/17 Referrals Saw Davis M.D. No Doctor, Assigned (PCP) Forms WORK / SCHOOL INSTRUCTIONS, HOME CARE DOCUMENTATION FORM, IMPORTANT VISIT INFORMATION Patient Instructions Corneal Injury, My [facility], ED Eye Injury Corneal Abrasion Additional Instructions Follow up with DR Davis's office STOP taking [place]/Vicodin Take Ibuprofen 600 mg every 6 hours Take Oxy IR for breakthrough pain Keep taking Ciloxin drops as prescribed You received narcotic or benzodiazepene medication while in the emergency room today. This is an addictive medication that may cause drowziness as well as constipation. Do not drive, operate heavy machinery, or drink alcohol under the influence of this medication. You have been examined and treated today on an emergency basis only. This is not a substitute for, or an effort to provide, complete comprehensive medical care. It is impossible to recognize and treat all injuries or illnesses in a single emergency department visit. It is therefore important that you follow up closely with your PCP. Call as soon as possible for an appointment. Thank you for your time and consideration. I look forward to speaking with you again soon. Please don't hesitate to call us if you have any questions.
== END 2017-02-15 08:05 | disposition home or self-care (01) ==
LOC: C.EDB 06:22 → C.EDA 08:05
DX: S05.01XA Injury of conjunctiva and corneal abrasion without foreign body, right eye, initial encounter (principal); X58.XXXA Exposure to other specified factors, initial encounter; Z86.19 Personal history of other infectious and parasitic diseases

== ENCOUNTER 2017-02-17 03:33 | Emergency (ER) | payer OTHER ==
[~2017-02-17] VITALS: Ht 182.9 cm; Wt 98.0 kg
[~2017-02-17 03:33] MED LIST changes: +OXYC1TAB3 PO
[2017-02-17 03:39] VITALS: TEMP 36.2; Ht 182.9 cm; Wt 98.0 kg
[2017-02-17] MEDS ORDERED: PROPARACAINE HCL 0.5% OP SOLN 15 ML BTL ONE (03:48)
[2017-02-17] MEDS ORDERED: PROPARACAINE HCL 0.5% OP SOLN 15 ML BTL OP STA (04:08)
[2017-02-17] MEDS ORDERED: CIPROFLOXACIN HCL 0.3% OP SOLN 2.5 ML BTL OP STA (04:08)
--- NOTE | 2017-02-17 04:11 | EMERGENCY ROOM VISIT NOTE ---
ED Visit Note First contact with patient: 03:42 CHIEF COMPLAINT: Eye pain HISTORY OF PRESENT ILLNESS: This 31 yo patient presents to the emergency department complaining of pain in the right eye past 3 days who has been here 2 other times. Patient states he is now out of the Cipro drops and is needing more. There has been a constant moderate pain and irritation, redness and tearing in the eye. There is a mild blurring of vision at times and light bothers the eye. The vision has not been decreased over all. The patient does not wear contacts. The patient rates the pain as irritating and 8/10. The patient has not had previous injuries to this eye. Tetanus shot is up to date. Patient states she's been drinking beer tonight does not feel overtly intoxicated. He has appointment with his pump erector helper within the week in [place]. Patient has been rubbing at his eye. REVIEW OF SYSTEMS: A 6 system review of systems was completed with positives and pertinent negatives listed in the HPI. ALLERGIES: Tylenol, penicillin MEDICATIONS: Reviewed PMH: Medical Problems: (1) Anxiety State Nos Status: Chronic (2) Foreign body of right hand Status: Resolved (3) Fracture of distal end of tibia Status: Resolved (4) Hepatitis C Status: Chronic (5) Medication requested Status: Resolved (6) Tobacco Use Disorder Status: Chronic (7) Work related injury Status: Resolved (8) Work related injury Status: Resolved Surgical Problems: (1) No history of previous surgery Status: Resolved SOCIAL HISTORY: No drug use PHYSICAL EXAM: Vital Signs: Reviewed Nurse's notes, vital signs mildly hypertensive. Visual acuity reviewed from nursing, 20/20 OS 20/40 OD. GENERAL : This is a white male with EtOH odor, in no acute distress, but who is uncomfortable from the eye problem. Well-developed well-nourished. EYES: The pupils are equal round and reactive to light and accommodation. EOMs are full and without tenderness. There is discharge of clear tears from the right eye which is injected. There is no foreign body visible under the eyelid even after lid eversion. Funduscopic exam reveals no hemorrhages, papilledema, or other abnormalities. No foreign body was seen embedded in the cornea under slit lamp exam. The cornea was clear and no hyphema was seen. Fluorescein uptake was observed with ultraviolet light significant for a corneal ulcer at 6: 00, 2mm x 3 mm. Negative Abdirashid sign EMERGENCY DEPARTMENT COURSE: I examined the patient. Alcaine 2 drops were placed in the patient's right eye. A slit lamp exam was performed as above. Ciloxan two drops was placed in the patient's right eye. Patient strongly encouraged to see his pump erector helper for his ongoing issues. Patient states he does not want any narcotics. He was strongly encouraged to avoid excessive alcohol intake. He states he is not driving. He was advised to use the Cipro drops as directed. He is currently now on day 3 for his Cipro drops. He was given the Cipro drops from the ER. Patient's eye pressures were 10 bilaterally. Patient was offered pain meds and declined as he states he does not want or need them. The patient was discharged home in good condition. After I discharged the patient, the nurse went in there to give him his discharge paperwork and he started demanding for the Alcaine drops. The nurse informed him that he can not have this. I also informed him prior to his discharge that he cannot take this home with him as this inhibits healing. Patient then started yelling and screaming using profanity demanding to be seen by the pump erector helper and to be admitted to the hospital. I did offer the patient an appointment today with the pump erector helper and refused. He states his insurance does not cover the pump erector helper in [place] and has to see the [facility]. He then threatened to nikole me and the entire ER staff. I informed that I would be glad to set him up with an eye appointment today with the specialist but refuses this. He was informed he was discharged and needs to follow up outpatient. He was escorted out by security. Finally, he was agreeable to see ophthalmology today and case management will facilitate this appointment. DIAGNOSIS: Corneal ulcer of the right eye DISCHARGE INSTRUCTIONS AND TREATMENT: As below Problem List Medical Problems: (1) Anxiety State Nos Status: Chronic (2) Foreign body of right hand Status: Resolved (3) Fracture of distal end of tibia Status: Resolved (4) Hepatitis C Status: Chronic (5) Medication requested Status: Resolved (6) Tobacco Use Disorder Status: Chronic (7) Work related injury Status: Resolved (8) Work related injury Status: Resolved Surgical Problems: (1) No history of previous surgery Status: Resolved Current/Historical Medications Scheduled PRN Ibuprofen (Advil), 200-600 MG PO Q4H PRN for Pain Oxycodone Immediate Rel Tab (Roxicodone Ir), 1-2 TAB PO Q4H PRN for Severe Pain Allergies Coded Allergies: Penicillins (Verified Allergy, Unknown, UNKNOWN, 02/17/17) Acetaminophen (Verified Adverse Reaction, Intermediate, "IN LARGE DOSES"- GI UPSET, 02/17/17) Vital Signs Date Time Temp Pulse Resp B/P (MAP) Pulse Ox O2 Delivery O2 Flow Rate FiO2 02/17/17 04:20 89 20 156/100 97 02/17/17 03:39 36.2 82 20 152/105 97 Room Air Medications Administered Medications (Trade) Dose Ordered Sig/Jammie Route Start Time Stop Time Status Last Admin Dose Admin Ciprofloxacin HCl (Ciprofloxacin 0.3% Op Soln) 1 drops NOW STAT OP 02/17/17 04:08 02/17/17 04:09 DC 02/17/17 04:15 1 DROPS Proparacaine HCl (Alcaine 0.5% Oph Soln) 2 drops NOW STAT OP 02/17/17 04:08 02/17/17 04:09 DC 02/17/17 04:15 2 DROPS Departure Information Impression Primary Impression: Corneal ulcer, right Dispostion Home / Self-Care Condition GOOD Forms WORK / SCHOOL INSTRUCTIONS, HOME CARE DOCUMENTATION FORM, IMPORTANT VISIT INFORMATION Patient Instructions [facility], ED Ulcer Cornea Additional Instructions Use Ciloxan two drops in right eye every four hours while awake for 5 days. Use Ibuprofen 600 mg or Tylenol 1000 mg every 6 hours as needed for pain ( Maximum 3000 mg Tylenol in 24 hr period). If you wear contacts, no contacts for 1 week. Return to the ED or see your family doctor or eye doctor in 36-48 hours for a recheck. Follow up with your pump erector helper as scheduled within the next few days.
[2017-02-17 04:20] VITALS: BP 156/100; PULSE 89; O2SAT 97
== END 2017-02-17 04:20 | disposition home or self-care (01) ==
LOC: C.EDB 03:34 → C.EDA 04:20
DX: H16.001 Unspecified corneal ulcer, right eye (principal); H57.11 Ocular pain, right eye